=== PATIENT | female | born 1985 | race Caucasian/White ===

== ENCOUNTER 2017-03-26 14:10 | Emergency (ER) | payer SELFPAY ==
[~2017-03-26 14:10] MED LIST: Iopamidol 370 76% 100 ML VIAL ONE
[2017-03-26 15:13] LABS: Bilirubin Negative (Negative); Blood, Urine Trace (Negative); Clarity Clear (Clear); Glucose, Urine (Dipstick) Negative (Negative); Leukocyte Negative (Negative); Nitrite Negative (Negative); Protein, Urine (Dipstick) Negative (Neg-Trace); RBC/HPF 0-3 HPF (0-3); Urobilinogen 0.2 mg/dL (0.2-1.0)
[2017-03-26 15:14] LABS: Amphetamine Not Detected (NotDetected); Bacteria/HPF Rare-Few HPF (None Seen); Barbiturates Screen Not Detected (NotDetected); Benzodiazepine Screen Not Detected (NotDetected); Cocaine Metabolite Screen Not Detected (NotDetected); Medtox Control Line Valid? VALID (VALID); Methadone Not Detected (NotDetected); Methamphetamine Not Detected (NotDetected); Opiate Screen Not Detected (NotDetected); Oxycodone Screen Not Detected (NotDetected); Phencyclidine (PCP) Not Detected (NotDetected); Squamous Epithelial 0-3 HPF (0-3); THC/Cannabinoid Screen Detected (NotDetected); Tricyclic Screen Not Detected (NotDetected); WBC/HPF None Seen HPF (0-3)
[2017-03-26 15:43] LABS: #Basophils 0.1 thou/uL (0.0-0.2); #Lymphocytes 1.5 thou/uL (1.20-3.40); #Monocytes 0.6 thou/uL (0.11-0.59); #Neutrophils 7.5 thou/uL (1.40-6.50); %Basophils 0.8 % (0.0-1.0); %Eosinophils 0.3 % (0.0-10.0); %Lymphocytes 15.6 % (21.0-51.0); %Monocytes 5.9 % (0.0-10.0); %Neutrophils 77.4 % (42.0-75.0); Hemoglobin 12.7 g/dL (12.0-16.0); Mean Corpuscular HGB CONC 33.2 g/dL (32.0-36.0); Mean Corpuscular Hemoglobin 26.2 pg (27.0-31.0); Mean Platelet Volume 7.4 fL (7.4-10.4); Platelet Count 323 thou/uL (130-400); RBC Distribution Width 13.8 % (11.5-14.5); Red Blood Cell (RBC) Count 4.85 mill/uL (4.20-5.40); White Blood Cell (WBC) Count 9.7 thou/uL (4.8-10.8)
[2017-03-26 15:59] LABS: ALT (SGPT) 11 U/L (8-55); AST (SGOT) 12 U/L (5-34); Acetaminophen Less than 6.0 mcg/mL (10.0-30.0); Albumin 4.5 g/dL (3.5-5.0); Alcohol Less than 10 mg/dL (Less than 10); Alkaline Phosphatase 67 U/L (40-150); Anion Gap 15 mmol/L (10-20); BUN (Urea Nitrogen) 10 mg/dL (7.0-18.7); Bilirubin, Total Less than 0.3 mg/dL (0.2-1.2); Calc. Creatinine Clearance 0 mL/min (70-130); Calcium 9.3 mg/dL (7.8-10.44); Carbon Dioxide 22 mmol/L (22-29); Chloride 107 mmol/L (98-107); Estimated GFR-MDRD 85; Globulin 3.1 g/dL (2.4-3.5); Glucose 83 mg/dL (70-105); Protein, Total 7.6 g/dL (6.0-8.3); Salicylate Less than 8.0 mg/dL (15.0-30.0); Sodium 140 mmol/L (136-145)
--- NOTE | 2017-03-26 16:15 | RAD ---
FRONTAL VIEW CHEST: Date: 03/26/17 No prior comparisons. INDICATION: MR clearance evaluation. FINDINGS: Lungs are clear. No effusion or pneumothorax. Cardiac silhouette is within normal limits of size. IMPRESSION: No focal consolidation. POS: EDEH
--- NOTE | 2017-03-26 16:21 | CT ---
CT CERVICAL SPINE NONCONTRAST CT NECK WITH IV CONTRAST: Date: 03/26/17 HISTORY: Attempted hanging. Neck injury. FINDINGS: Vertebral body height and alignment are maintained. Cervicothoracic junction is intact No acute frac ture or dislocation are apparent. Hemangioma is apparent within the left side of the C7 vertebral nadeen dy. There is contrast opacification of the carotid and jugular vessels. No active extravasation is appar ent. Within the left thyroid lobe, a lobulated, predominantly low density mass measures up to 1.5 cm grea test diameter and contains some dystrophic coarse calcification. IMPRESSION: 1. No acute osseous abnormalities of the cervical spine are demonstrated. 2. No acute soft tissue injuries of the neck are apparent. 3. Lobular partially calcified left thyroid lobe mass. Please consider nonemergent sonogram of the thyroid gland for better characterization. POS: MARIANO
--- NOTE | 2017-03-26 16:45 | RAD ---
3 VIEWS RIGHT SHOULDER: Date: 03/26/17 CLINICAL HISTORY: Fall with right shoulder pain. FINDINGS: There is no fracture or dislocation. The right acromioclavicular joint is maintained. IMPRESSION: No acute osseous abnormality. POS: MARIANO
[2017-03-26] MEDS ORDERED: Ondansetron HCl/PF 4 MG/2 ML Vial ONE (17:05)
[2017-03-26 21:46] LABS: BHCG - Serum NEGATIVE (NEGATIVE); Pregs Control Background? CLEAR/WHITE (CLR/WHITE); Pregs Control Bar Appear? YES (CONTROL BAR)
== END 2017-03-26 21:06 ==
LOC: MADERS 14:10
DX: F32.9 Major depressive disorder, single episode, unspecified (principal); F41.9 Anxiety disorder, unspecified
CPT/HCPCS: 36415; 71010; 72126; 80053; 80306; 80307; 81001; 84443; 84703; 85025; 87086; 96374; 96375; 96376; J2270; J2405

== ENCOUNTER 2023-01-29 14:44 | Emergency (ER) | payer OTHER ==
[2023-01-29] MEDS ORDERED: Fluorescein Opthalmic Strip ONE (15:18)
[2023-01-29] MEDS ORDERED: Tetracaine 0.5% PF 4 ML BOT ONE (15:18)
== END 2023-01-29 15:45 | disposition home or self-care (01) ==
LOC: MADERS 14:44
DX: H10.9 Unspecified conjunctivitis (principal)
CPT/HCPCS: 99283

== ENCOUNTER 2025-07-02 15:02 | Emergency (ER) | payer OTHER, SELFPAY | END 2025-07-02 16:08 | disposition home or self-care (01) | LOC: MADERS 15:02 | DX: J06.9 Acute upper respiratory infection, unspecified (principal); B97.89 Other viral agents as the cause of diseases classified elsewhere; Z55.6 Problems related to health literacy | CPT/HCPCS: 87426; 99283 ==

== ENCOUNTER 2025-08-18 19:46 | Emergency (ER) | payer BC ==
[2025-08-18] MEDS ORDERED: cefTRIAXone (ROCEPHIN) 2 GM VIAL ONE (20:01)
[2025-08-18] MEDS ORDERED: Acetaminophen 500 MG TAB ONE (20:01)
[2025-08-18 20:16] LABS: #Basophils 0.1 thou/uL (0.0-0.2); #Eosinophils 0.1 thou/uL (0.0-0.7); #Lymphocytes 2.2 thou/uL (1.20-3.40); #Monocytes 0.9 thou/uL (0.11-0.59); #Neutrophils 14.9 thou/uL (1.40-6.50); %Basophils 0.7 % (0.0-1.0); %Eosinophils 0.5 % (0.0-10.0); %Lymphocytes 12.0 % (21.0-51.0); %Monocytes 4.9 % (0.0-10.0); %Neutrophils 82.0 % (42.0-75.0); Anisocytosis SLIGHT = 6-15 cells (100X) (0-5/hpf); Hematocrit 42.1 % (36.0-47.0); Hemoglobin 13.0 g/dL (12.0-16.0); MDiff Complete? YES; Mean Corpuscular Hemoglobin 23.6 pg (27.0-31.0); Mean Corpuscular Volume 76.7 fl (78.0-98.0); Platelet Count 480 10x3/uL (130-400); Poikilocytosis SLIGHT = 6-15 cells (100X) (0-5/hpf); Red Blood Cell (RBC) Count 5.50 mill/uL (4.20-5.40); White Blood Cell (WBC) Count 18.1 10x3/uL (4.8-10.8)
[2025-08-18 20:18] LABS: ALT (SGPT) 11 U/L (Less than 34); AST (SGOT) 13 U/L (11-34); Albumin 4.4 g/dL (3.1-4.5); Alkaline Phosphatase 59 U/L (40-110); Anion Gap 20 mmol/L (10-20); BUN (Urea Nitrogen) 9 mg/dL (7.0-18.7); Bilirubin, Total 0.4 mg/dL (0.3-1.2); Calc. Creatinine Clearance 0 mL/min (70-130); Calcium 9.3 mg/dL (7.8-10.44); Carbon Dioxide 19 mmol/L (22-29); Chloride 104 mmol/L (98-107); Globulin 3.7 g/dL (2.4-3.5); Glucose 97 mg/dL (70-105); Magnesium 1.7 mg/dL (1.6-2.6); Potassium 3.5 mmol/L (3.5-5.1); Sodium 139 mmol/L (136-145)
[2025-08-18 20:20] LABS: Troponin I Less than 0.010 ng/mL (< 0.028)
[2025-08-18 21:12] LABS: Bacteria/HPF Rare-Few HPF (None Seen); CAUTI Indications for Culture Acute Hematuria; Glucose, Urine (Dipstick) Negative (Negative); Leukocyte Negative (Negative); Protein, Urine (Dipstick) Negative (Neg-Trace); RBC/HPF 0-3 HPF (0-3); Specific Gravity, Urine 1.015 (1.005-1.030); Urine Culture Reflex No No; WBC/HPF 0-3 HPF (0-3)
[2025-08-18 21:20] LABS: Cocaine Metabolite Screen Negative (Negative); THC/Cannabinoid Screen Negative (Negative); Tricyclic Screen Negative (Negative)
== END 2025-08-18 23:25 | disposition short-term general hospital (02) ==
LOC: MADERS 19:46
DX: G45.9 Transient cerebral ischemic attack, unspecified (principal); R20.2 Paresthesia of skin; R50.9 Fever, unspecified; R29.705 NIHSS score 5; F41.9 Anxiety disorder, unspecified; F25.9 Schizoaffective disorder, unspecified; F31.9 Bipolar disorder, unspecified
CPT/HCPCS: 36415; 70450; 71045; 72125; 72128; 72131; 80053; 80306; 81001; 83605; 83735; 84484; 85025; 85379; 87040; 87428; 93005; 96365; J0696; J7030